=== PATIENT | male | born 1960 | race African-American/Black ===

== ENCOUNTER 2016-06-21 09:56 | Observation (INO) | payer OTHER ==
[2016-06-21] VITALS (9 sets, daily range): BP systolic 150–200; BP diastolic 80–95; PULSE 60–74; RESP 16–20; TEMP 97.2–98.8; O2SAT 95–99
[~2016-06-21] VITALS: Ht 170.2 cm; Wt 98.0 kg
[~2016-06-21 09:56] MED LIST: ASPI81 PO; ATOR20TA42 PO; CLOP75 PO; COLC.6 PO; LISI10 PO; PRIL20CA PO
[2016-06-21] MEDS ORDERED: SODIUM CHLORIDE 0.9% FLUSH 5 ML FLUSH IVF PRN ×2 (10:30→13:00)
--- NOTE | 2016-06-21 10:31 | PD ---
HPI Chief Complaint: Eye Problems/Injury Time Seen by Provider: 10:16 Travel History International Travel<30 days: No Contact w/Intl Traveler<30days: No Traveled to known affect area: No History of Present Illness HPI This 55-year-old male presents emergency department for evaluation of loss of vision transiently yesterday and again this morning. Patient is also not had his blood pressure medicine some time. He also endorses a mild headache as well as chest pain in the center of his chest that is nonradiating. Patient states the last time he had these symptoms I told him he had a mild stroke and be admitted to the hospital and he wants to make sure that this is not happening again. Patient currently states his vision is completely intact, he denies any focalized weakness but does endorse generalized weakness in both lower extremities. The onset of his symptoms were while he was sitting doing a task at work. PFSH Past Medical History Asthma: No Autoimmune Disease: No Blood Disorders: No Anxiety: No Depression: No Heart Rhythm Problems: No Cancer: No Cardiovascular Problems: Yes High Cholesterol: No Chemotherapy: No Chest Pain: Yes Congestive Heart Failure: No COPD: No Cerebrovascular Accident: Yes Diabetes: No Diminished Hearing: No Endocrine: No GERD: No Gout: Yes (L FOOT, R KNEE) Genitourinary: No Hiatal Hernia: No Hypertension: Yes Immune Disorder: No Musculoskeletal: Yes (gout) Neurologic: Yes (tingling of lips and fingers) Psychiatric: No Reproductive: No Respiratory: No Immunizations Current: Yes Radiation Therapy: No Sleep Apnea: No Thyroid Disease: No Ulcer: No Tetanus Vaccination: > 5 Years Past Surgical History AICD: No Arteriovenous Shunt: No Insulin Pump: No Joint Replacement: No Pacemaker: No Other Surgery: Yes (HERNIA SURGERY AT AGE 15) Social History Alcohol Use: No Tobacco Use: No Substance Use: No Allergies-Medications (Allergen,Severity, Reaction): Coded Allergies: No Known Allergies (Verified , 06/21/16) Reported Meds & Prescriptions Reported Meds & Active Scripts Active No Active Prescriptions or Reported Medications Review of Systems Except as stated in HPI: all other systems reviewed are Neg Physical Exam Narrative GENERAL: Well-developed well-nourished no apparent distress SKIN: Warm and dry. HEAD: Atraumatic. Normocephalic. EYES: Pupils equal and round. No scleral icterus. No injection or drainage. ENT: No nasal bleeding or discharge. Mucous membranes pink and moist. NECK: Trachea midline. No JVD. CARDIOVASCULAR: Regular rate and rhythm. No murmur appreciated. 2+ bilateral equal pulses in all 4 extremities. RESPIRATORY: No accessory muscle use. Clear to auscultation. Breath sounds equal bilaterally. GASTROINTESTINAL: Abdomen soft, non-tender, nondistended. Hepatic and splenic margins not palpable. MUSCULOSKELETAL: No obvious deformities. No clubbing. No cyanosis. No edema. NEUROLOGICAL: Awake and alert and oriented 3. Cranial nerves II through XII are grossly intact and nonfocal, 5 out of 5 strength in all 4 extremity is, ambulates narrow based with balanced gait. PSYCHIATRIC: Appropriate mood and affect; insight and judgment normal. Data Data Last Documented VS Vital Signs Date Time Temp Pulse Resp B/P Pulse Ox O2 Delivery O2 Flow Rate FiO2 06/21/16 11:09 99 06/21/16 09:59 97.9 74 16 200/95 Orders Electrocardiogram (06/21/16 10:22) Complete Blood Count With Diff (06/21/16 10:22) Comprehensive Metabolic Panel (06/21/16 10:22) Creatine Kinase (Cpk) (06/21/16 10:22) Prothrombin Time / Inr (Pt) (06/21/16 10:22) Act Partial Throm Time (Ptt) (06/21/16 10:22) Troponin I (06/21/16 10:22) Thyroid Stimulating Hormone (06/21/16 10:22) Urinalysis - C+S If Indicated (06/21/16 10:22) Ct Brain W/O Iv Contrast(Rout) (06/21/16 10:22) Blood Glucose (06/21/16 10:22) Ecg Monitoring (06/21/16 10:22) Iv Access Insert/Monitor (06/21/16 10:22) Oximetry (06/21/16 10:22) Sodium Chloride 0.9% Flush (Ns Flush) (06/21/16 10:30) Aspirin Chew (Aspirin Chew) (06/21/16 12:00) Admit Order (Ed Use Only) (06/21/16 ) Labs Laboratory Tests Test 06/21/16 10:48 White Blood Count 4.2 TH/MM3 Red Blood Count 4.14 MIL/MM3 Hemoglobin 12.8 GM/DL Hematocrit 37.6 % Mean Corpuscular Volume 90.8 FL Mean Corpuscular Hemoglobin 30.9 PG Mean Corpuscular Hemoglobin 34.0 % Concent Red Cell Distribution Width 14.7 % Platelet Count 191 TH/MM3 Mean Platelet Volume 8.6 FL Neutrophils (%) (Auto) 60.6 % Lymphocytes (%) (Auto) 24.7 % Monocytes (%) (Auto) 7.9 % Eosinophils (%) (Auto) 6.0 % Basophils (%) (Auto) 0.8 % Neutrophils # (Auto) 2.5 TH/MM3 Lymphocytes # (Auto) 1.0 TH/MM3 Monocytes # (Auto) 0.3 TH/MM3 Eosinophils # (Auto) 0.2 TH/MM3 Basophils # (Auto) 0.0 TH/MM3 CBC Comment DIFF FINAL Differential Comment Erythrocyte Sedimentation Rate 43 mm/hr Prothrombin Time 10.5 SEC Prothromb Time International 1.0 RATIO Ratio Activated Partial 28.6 SEC Thromboplast Time Sodium Level 142 MEQ/L Potassium Level 3.8 MEQ/L Chloride Level 108 MEQ/L Carbon Dioxide Level 26.1 MEQ/L Anion Gap 8 MEQ/L Blood Urea Nitrogen 13 MG/DL Creatinine 0.93 MG/DL Estimat Glomerular Filtration 102 ML/MIN Rate Random Glucose 106 MG/DL Calcium Level 8.7 MG/DL Total Bilirubin 0.3 MG/DL Aspartate Amino Transf 18 U/L (AST/SGOT) Alanine Aminotransferase 30 U/L (ALT/SGPT) Alkaline Phosphatase 48 U/L Total Creatine Kinase 236 U/L Troponin I LESS THAN 0.02 NG/ML Total Protein 7.1 GM/DL Albumin 3.5 GM/DL Thyroid Stimulating Hormone 1.760 uIU/ML [address] [place] [address] Medical Decision Making Medical Screen Exam Complete: Yes Emergency Medical Condition: Yes Interpretation(s) EKG shows sinus first degree heart block with a MI interval of 212, intervals otherwise within normal limits. No concerning ST T changes. [place] normal R- wave progression. This is an abnormal rhythm EKG. Differential Diagnosis TIA, CVA, carotid stenosis, atrial fibrillation, hemorrhagic stroke, electrolyte abnormality, hypertensive emergency. Narrative Course Patient was roomed in the emergency department, he appears well on arrival and neurologically completely intact. His vision has resolved since earlier event today. No indication for stroke alert. CT head is showing remote lacunar infarcts with no acute abnormality. Electrolytes within normal limits, EKG troponin CBC and CMP are reassuring. Did discuss with the patient that he does require further workup for this possible TIA and he is agreeable. His blood pressure without intervention has come down from 200 down to 170 systolic. There is no indication further blood pressure lowering acutely at this time. Patient was discussed with Dr. Yordan Junior for observation status and he is agreeable. This was agreed on by the patient is well. Diagnosis Primary Impression: Transient ischemic attack Qualified Code: G45.3 - Amaurosis fugax Additional Impressions: Amaurosis fugax, both eyes Hypertension Admitting Information Admitting Physician Requests: Observation Scripts No Active Prescriptions or Reported Meds Condition: Shabhaz Hopkins MD Jun 21, 2016 10:31
[2016-06-21 11:06] LABS: AUTOMATED NEUTROPHIL # 2.5 TH/MM3 (1.8-7.7); BASOPHIL % 0.8 % (0.0-2.0); EOSINOPHIL # 0.2 TH/MM3 (0-0.4); HEMATOCRIT 37.6 % (39.0-51.0); HEMO FLAGS DIFF FINAL; LYMPH % 24.7 % (9.0-44.0); MEAN CELL VOLUME 90.8 FL (80.0-100.0); MEAN CORPUSCULAR HEMOGLOBIN 30.9 PG (27.0-34.0); MONO % 7.9 % (0.0-8.0); NEUT % 60.6 % (16.0-70.0); PLATELET COUNT 191 TH/MM3 (150-450); RED BLOOD COUNT 4.14 MIL/MM3 (4.50-5.90); RED CELL DISTRIBUTION WIDTH 14.7 % (11.6-17.2); WHITE BLOOD COUNT 4.2 TH/MM3 (4.0-11.0)
--- NOTE | 2016-06-21 11:07 | RADRPT ---
EXAM DATE/TIME: 06/21/2016 10:55 [facility] COMPARISON: CT BRAIN W/O CONTRAST, May 19, 2015, 9:30. INDICATIONS : Cephalgia for 2 weeks. RADIATION DOSE: 40.09 CTDIvol (mGy) MEDICAL HISTORY : Cerebrovascular disease. Hypertension. SURGICAL HISTORY : None. ENCOUNTER: Initial ACUITY: 1 day PAIN SCALE: 3/10 LOCATION: cranial TECHNIQUE: Multiple contiguous axial images were obtained of the head. Using automated exposure control and adj ustment of the mA and/or kV according to patient size, radiation dose was kept as low as reasonably a chievable to obtain optimal diagnostic quality images. FINDINGS: CEREBRUM: The ventricles are normal for age. No evidence of midline shift, mass lesion, hemorrhage or acute in farction. No extra-axial fluid collections are seen. Old right basal ganglia lacunar infarct again n oted. POSTERIOR FOSSA: The cerebellum and brainstem are intact. The 4th ventricle is midline. The cerebellopontine angle i s unremarkable. EXTRACRANIAL: The visualized portion of the orbits is intact. SKULL: The calvaria is intact. No evidence of skull fracture. CONCLUSION: 1. No acute intracranial abnormality. 2. 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 Tom Hogan MD on June 21, 2016 at 11:05 Board Certified Radiologist. This report was verified electronically.
[2016-06-21 11:15] LABS: APTT (PATIENT) 28.6 SEC (24.3-30.1); PROTHROMBIN TIME - PATIENT 10.5 SEC (9.8-11.6)
[2016-06-21 11:29] LABS: ANION GAP 8 MEQ/L (5-15); AST (GOT) 18 U/L (15-37); BICARBONATE 26.1 MEQ/L (21.0-32.0); BLOOD UREA NITROGEN 13 MG/DL (7-18); CHLORIDE 108 MEQ/L (98-107); GLOMERULAR FILTRATION RATE 102 ML/MIN (>89); POTASSIUM 3.8 MEQ/L (3.5-5.1); SODIUM (NA) 142 MEQ/L (136-145)
[2016-06-21 11:39] LABS: ALKALINE PHOSPHATASE 48 U/L (45-117); ALT (GPT) 30 U/L (12-78); CREATINE KINASE 236 U/L (39-308); TOTAL BILIRUBIN ADULT 0.3 MG/DL (0.2-1.0)
[2016-06-21] MEDS ORDERED: ASPIRIN 81 MG CHEW TAB CHEW ONE (12:00)
[2016-06-21] MEDS ORDERED: DEXTROSE 50% IN WATER 50 ML VIAL(D50) IV PUSH PRN (13:00)
[2016-06-21] MEDS ORDERED: GLUCAGON 1 MG/ML VIAL OTHER PRN (13:00)
[2016-06-21] MEDS: ENOXAPARIN SODIUM 40 MG/0.4 ML SYRINGE SQ SCH (14:04)
--- NOTE | 2016-06-21 15:28 | EC ---
Study Study Date:06/21/2016 STUDY CONCLUSIONS SUMMARY - Left ventricle: The cavity size was normal. Wall thickness was normal. Systolic function was normal. The estimated ejection fraction was in the range of 55% to 60%. Wall motion was normal; there were no regional wall motion abnormalities. - Mitral valve: Mild regurgitation. - Tricuspid valve: Mild regurgitation. If LV function is below 40, please consider prescribing an ACEI or ARB or document rationale for non-use. PROCEDURE DATA STUDY STATUS: Elective. Procedure: Transthoracic echocardiography. Image quality was good. Scanning was performed from the parasternal, apical, and subcostal acoustic windows. Study completion: The patient tolerated the procedure well. Transthoracic echocardiography. M-mode, complete 2D, complete spectral Doppler, and color Doppler. Patient status: Inpatient. CARDIAC ANATOMY LEFT VENTRICLE: The cavity size was normal. Wall thickness was normal. Systolic function was normal. The estimated ejection fraction was in the range of 55% to 60%. Wall motion was normal; there were no regional wall motion abnormalities. AORTIC VALVE: Trileaflet; normal thickness leaflets. Doppler: Transvalvular velocity was within the normal range. There was no stenosis. No regurgitation. AORTA: Aortic root: The aortic root was normal in size. MITRAL VALVE: Structurally normal valve. Doppler: Transvalvular velocity was within the normal range. There was no evidence for stenosis. Mild regurgitation. LEFT ATRIUM: The atrium was normal in size. RIGHT VENTRICLE: The cavity size was normal. Wall thickness was normal. PULMONIC VALVE: Doppler: Transvalvular velocity was within the normal range. There was no evidence for stenosis. No regurgitation. TRICUSPID VALVE: Structurally normal valve. Doppler: Transvalvular velocity was within the normal range. Mild regurgitation. PULMONARY ARTERY: The main pulmonary artery was normal-sized. Systolic pressure was within the normal range. RIGHT ATRIUM: The atrium was normal in size. PERICARDIUM: There was no pericardial effusion. SYSTEMIC VEINS: Inferior vena cava: The vessel was normal in size. BASIC MEASUREMENTS ADULT Normal Left ventricle LV internal dimension, ED, chordal level, *39.1 mm 43-52 PLAX LV internal dimension, ES, chordal level, 29 mm 23-38 PLAX Fractional shortening, chordal level, PLAX *26 % >29 LV posterior wall thickness, ED 10.5 mm IVS/LVPW ratio, ED 1.27 <1.3 Ventricular septum Septal thickness, ED 13.3 mm Aortic valve Leaflet separation 21 mm 15-26 Right ventricle RV internal dimension, ED, PLAX 34.3 mm 19-38 BASIC MEASUREMENTS ADULT Normal Aortic valve Leaflet separation 21 mm 15-26 Aorta Root diameter, ED 31 mm 20-37 Left atrium Anterior-posterior dimension, ES 40 mm 19-40 LA/aortic root ratio 1.29 DOPPLER MEASUREMENTS ADULT Normal Main pulmonary artery Pressure, S 29 mm Hg =30 Tricuspid valve Regurgitant peak velocity 216 cm/s Peak RV-RA gradient, S 19 mm Hg Maximal regurgitant velocity 216 cm/s Systemic veins Estimated CVP 10 mm Hg Right ventricle RV pressure, S 29 mm Hg <30 LEGEND: Mean values are shown as u=mean value. Asterisk (*) pastor values outside specified normal range. Prepared and signed by Braden Gaona [id number]
--- NOTE | 2016-06-21 15:42 | RADRPT ---
EXAM DATE/TIME: 06/21/2016 14:10 [facility] COMPARISON: CTA CAROTID ARTERIES W 3D RECON, May 12, 2015, 19:47. US CAROTID ARTERIES, May 12, 2015, 11: 36. INDICATIONS : Transient ischemic attack. MEDICAL HISTORY : Hypertension. CVA. SURGICAL HISTORY : Hernia repair. ENCOUNTER: Subsequent ACUITY: 1 day PAIN SCORE: 0/10 LOCATION: Bilateral neck PEAK SYSTOLIC VELOCITIES (cm/sec): ICA/CCA RATIO: Right: 1.2 Left: 0.8 ICA: Right: 113 Left: 87 CCA: Right: 97 Left: 104 ECA: Right: 86 Left: 83 VERTEBRAL: Right: 46 antegrade Left: 67 antegrade Elevated flow velocities and ICA/CCA ratios have been found to correlate with increased degrees of vessel stenosis, calculated as percentage of diameter relative to a normal segment of distal ICA/CCA FINDINGS: RIGHT CAROTID: No significant stenosis is visualized. There is mild calcified plaque in the carotid bulb. LEFT CAROTID: No significant stenosis is visualized. There is intimal thickening and atherosclerotic plaque throug hout the common carotid artery and carotid bulb. The waveforms are within normal limits. VERTEBRAL ARTERIES: Antegrade flow is seen in both vertebral arteries. MISCELLANEOUS: None. CONCLUSION: 1. Mild atherosclerotic disease bilaterally, not significantly changed from the study from one year a go. No significant stenosis is identified within either internal carotid artery. 2. There is antegrade flow within both vertebral arteries. Tom Villarreal MD on June 21, 2016 at 15:38 Board Certified Radiologist. This report was verified electronically.
[2016-06-21] MEDS: INSULIN ASPART SUPPLEMENTAL SCALE SQ SCH ×2 (16:00→21:00)
--- NOTE | 2016-06-21 16:16 | OTSOAPIP ---
TIME SESSION COMPLETED: PM TREATMENT TIME: 0 MINS. CHART REVIEWED. ATTEMPTED TO SEE FOR OT EVALUATION, HOWEVER HAD PROCEDURE IN ROOM. WILL FOLLOW NEXT DAY. Therapist: YOLANDA RUIZ OT/[facility] on file
[2016-06-21 17:19] LABS: HEMOGLOBIN A1a 1.5 %; HEMOGLOBIN A1b 1.5 %; HEMOGLOBIN Ao 85.2 %; HEMOGLOBIN LA1C 1.9 %; HEMOGLOBIN P3 3.5 %
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
--- NOTE | 2016-06-21 18:45 | EKG ---
Date Performed: 06/21/2016 Time Performed: 10:41:28 PTAGE: 55 years EKG: Sinus rhythm WITH FIRST DEGREE AV BLOCK ABNORMAL ECG PREVIOUS TRACING : 05/19/2015 08.09 Compared to prior tracing no significant change DOCTOR: Thor Mccoy Interpretating Date/Time 06/21/2016 18:44:23
--- NOTE | 2016-06-21 19:14 | RADRPT ---
EXAM DATE/TIME: 06/21/2016 18:22 [facility] COMPARISON: CTA BRAIN W 3D RECON, May 12, 2015, 19:47. CTA CAROTID ARTERIES W 3D RECON, May 12, 2015, 19 :47. INDICATIONS : TIA. MEDICAL HISTORY : Hypertension. Diabetes mellitus type 2. Steroid injections. SURGICAL HISTORY : Umbilical hernia repair. ENCOUNTER: Initial ACUITY: 1 day PAIN SCORE: 3/10 LOCATION: Bilateral cranial Please note a normal MRA of the brain does not entirely exclude the possibility of a small aneurysm, nor the possibility of distal intracranial vessel disease. TECHNIQUE: 3D time of flight MRA was performed. Source images, multiplanar STS MIP, and 3D volume MIP reconstru ctions were reviewed. FINDINGS: Anterior circulation within normal limits. Diffusely diminutive vertebrobasilar system, similar to th e prior CTA. No evidence of an acute thrombosis. No aneurysm. Patient has a prominent caliber posteri or communicating artery on the left. CONCLUSION: 1. No acute abnormality seen of the intracranial arteries. 2. 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 Tom Hogan MD on June 21, 2016 at 19:09 Board Certified Radiologist. This report was verified electronically.
--- NOTE | 2016-06-21 19:16 | RADRPT ---
EXAM DATE/TIME: 06/21/2016 18:22 [facility] COMPARISON: CT BRAIN W/O CONTRAST, June 21, 2016, 10:55. INDICATIONS : TIA. CONTRAST: 20 cc Omniscan (gadodiamide) IV MEDICAL HISTORY : Hypertension. Diabetes mellitus type 2. SURGICAL HISTORY : Umbilical hernia repair. ENCOUNTER: Initial ACUITY: 1 day PAIN SCORE: 2/10 LOCATION: Bilateral cranial TECHNIQUE: Multiplanar, multisequence MRI of the brain was performed both prior to and following the administrat ion of paramagnetic contrast. FINDINGS: CEREBRUM: The ventricles are normal for age. No evidence of midline shift, mass lesion, hemorrhage or acute in farction. No extraaxial fluid collections are seen. The pituitary gland and suprasellar cistern are normal in configuration. A lacunar infarct again seen right basal ganglia. WHITE MATTER: No significant signal abnormalities are seen in the white matter. POSTERIOR FOSSA: The cerebellum and brainstem are intact. The 4th ventricle is midline. The cerebellopontine angle is unremarkable. The cerebellar tonsils are normal in position. DIFFUSION IMAGING: An estimated 5 x 15 mm area of faintly restricted diffusion is seen in the right occipital lobe. EXTRACRANIAL: The visualized portions of the orbits and paranasal sinuses are unremarkable. POST-CONTRAST: No abnormal areas of parenchymal or dural enhancement. No evidence of blood-brain barrier breakdown. CONCLUSION: 1. Very small acute or subacute infarct of the right occipital lobe. 2. 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 Tom Hogan MD on June 21, 2016 at 19:13 Board Certified Radiologist. This report was verified electronically.
--- NOTE | 2016-06-21 19:33 | MB ---
cc: ZAY NEGRETE MD DATE OF CONSULTATION 06/21/16 HISTORY This 55-year-old describing to me that his vision has been coming and going the past two weeks. He describes it as mostly the right eye. He admits some headaches, but this is today and relatively mild. This morning he also thought he was having some right lip twitching and when he had these in the past it might have been the time he had a stroke a couple of years ago. He is not taking any medications. He does not even take aspirin. He was evaluated as a stroke I believe this was last year. The neurologic exam is now completely normal. He was ambulatory for me, ocular movements and visual sidhu full. Pupils equal and reactive, disks not well visualized. No facial weakness. Speech and language normal. Reflexes were diminished, trace throughout. Plantar response is flexor. IMAGING STUDIES The CT brain shows nothing acute, old right basal ganglia infarct. The carotid ultrasound is unremarkable. LABORATORY DATA CBC and chemistry is essentially normal. Sed rate is 43. ASSESSMENT Recurrent visual loss in the past couple of weeks. The patient describes the right eye and this certainly may be the right amaurosis fugax or right hemianopsia. There was some twitching right lip today, although mild. He had a stroke last year and the CT is showing old stroke right basal ganglia. He was started on aspirin. I will check a lipid profile. Carotid ultrasound negative, but his symptoms are of concern. We will add an EEG for the possibility of seizures because of this facial twitching or lip twitching. We will check MRI brain, MRA neck and head. I will follow the neurological course. Thank you for asking us to assist in his care. MD ANIL Morgan/ /5:13 PM /7:22 PM
[2016-06-21] MEDS ORDERED: GADODIAMIDE PF 287 MG/ML 20 ML VIAL (for RAD MRI) IV PUSH ONE (19:47)
--- NOTE | 2016-06-21 20:12 | RADRPT ---
EXAM DATE/TIME: 06/21/2016 18:22 [place] COMPARISON: No previous studies available for comparison. INDICATIONS : TIA. CONTRAST: 20 cc Omniscan (gadodiamide) IV MEDICAL HISTORY : Hypertension. Diabetes mellitus type 2. Steroid injections. SURGICAL HISTORY : Umbilical hernia repair. ENCOUNTER: Initial ACUITY: 1 day PAIN SCORE: 3/10 LOCATION: Bilateral cranial Percent stenosis is calculated using the diameter of the stenotic region over the diameter of the nor mal distal internal carotid artery. TECHNIQUE: Bolus infused MRA of the extracranial circulation was performed using a neurovascular coil. Post pro cessing was performed including rotating subvolume maximum intensity projections of each carotid sunshine ry, rotating full volume maximum intensity projections of both carotid arteries, sagittal and coronal sliding thin slab reformations of each carotid artery, and left oblique sliding thin slab reformatio n through the aortic arch to include the origin of the arch branch vessels. FINDINGS: AORTIC ARCH: There is a three vessel origin of the great vessels from the aorta. No evidence of ostial narrowing. RIGHT CAROTID: The common carotid artery is intact. The carotid bulb has a normal configuration without ulceration or narrowing. The internal carotid artery lumen is smooth without stenosis. The external carotid ar janeth is intact. LEFT CAROTID: The common carotid artery is intact. The carotid bulb has a normal configuration without ulceration or narrowing. The internal carotid artery lumen is smooth without stenosis. The external carotid ar janeth is intact. VERTEBRALS: Chronically diminutive vertebrobasilar system especially distally again noted and not significantly c hanged from the prior CTA. I don't see acute vertebral artery thrombosis or dissection. CONCLUSION: Carotids within normal limits. Chronically diminutive vertebrobasilar system. Tom Hogan MD on June 21, 2016 at 20:09 Board Certified Radiologist. This report was verified electronically.
[2016-06-21] MEDS: SODIUM CHLORIDE 0.9% FLUSH 5 ML FLUSH IVF SCH (21:03)
[2016-06-22] VITALS (9 sets, daily range): BP systolic 138–172; BP diastolic 75–106; PULSE 62–74; RESP 18–21; TEMP 97.3–98.8; O2SAT 96–99
[2016-06-22] MEDS: INSULIN ASPART SUPPLEMENTAL SCALE SQ SCH ×3 (07:00→16:00)
[2016-06-22 08:17] LABS: AUTOMATED NEUTROPHIL # 2.8 TH/MM3 (1.8-7.7); BASOPHIL % 0.6 % (0.0-2.0); EOSINOPHIL # 0.2 TH/MM3 (0-0.4); EOSINOPHIL % 5.3 % (0.0-4.0); HEMATOCRIT 39.4 % (39.0-51.0); HEMO FLAGS DIFF FINAL; LYMPHOCYTE # 1.1 TH/MM3 (1.0-4.8); MEAN CELL VOLUME 90.8 FL (80.0-100.0); MEAN CORPUSCULAR HEMOGLOBIN 30.7 PG (27.0-34.0); MEAN CORPUSCULAR HGB CONC 33.8 % (32.0-36.0); MONO % 7.8 % (0.0-8.0); NEUT % 61.3 % (16.0-70.0); PLATELET COUNT 189 TH/MM3 (150-450); RED BLOOD COUNT 4.34 MIL/MM3 (4.50-5.90); RED CELL DISTRIBUTION WIDTH 14.6 % (11.6-17.2); WHITE BLOOD COUNT 4.6 TH/MM3 (4.0-11.0)
[2016-06-22 08:51] LABS: BICARBONATE 29.3 MEQ/L (21.0-32.0); HDL CHOLESTEROL 52.2 MG/DL (40.0-60.0); POTASSIUM 3.7 MEQ/L (3.5-5.1)
[2016-06-22] MEDS ORDERED: ASPIRIN 81 MG CHEW TAB PO SCH (09:00)
[2016-06-22] MEDS ORDERED: PANTOPRAZOLE SOD 40 MG DELAYED RELEASE TAB PO SCH (09:00)
[2016-06-22] MEDS ORDERED: ATORVASTATIN 20 MG TAB PO SCH (09:15)
[2016-06-22] MEDS ORDERED: ENALAPRILAT 1.25 MG/ML VIAL IV PRN (10:00)
--- NOTE | 2016-06-22 10:06 | HHI.PR ---
Subjective Remarks fu TIA r/o CVA, htn Patient denies any visual deficit, her vision, headache, dizziness Denies nausea vomiting. Denies dizziness, chest pain or shortness of breath. He noted to be slightly elevated with systolic blood pressure into the 150s and 160s. Objective Vitals Vital Signs Date Time Temp Pulse Resp B/P Pulse Ox O2 Delivery O2 Flow Rate FiO2 06/22/16 08:18 97.3 68 18 158/80 96 06/22/16 04:24 98.0 67 20 163/94 99 06/22/16 04:00 70 06/22/16 01:30 98.8 74 21 172/84 99 06/22/16 01:00 98.8 72 21 162/106 98 06/21/16 23:00 97.6 67 20 173/88 99 06/21/16 21:00 98.8 64 18 178/82 98 06/21/16 20:00 63 06/21/16 18:00 150/80 06/21/16 17:08 74 06/21/16 16:20 97.2 60 18 150/80 95 06/21/16 14:05 97.8 66 17 173/84 99 Room Air 06/21/16 11:09 99 Result Diagram: 06/22/16 0720 06/22/16 0720 Imaging Last Impressions Head CT 06/21/16 1022 Signed Impressions: Service Date/Time: Tuesday, June 21, 2016 10:55 - CONCLUSION: 1. No acute intracranial abnormality. 2. 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 Tom Hogan MD Neck Magnetic Resonance Angiography 06/21/16 0000 Signed Impressions: Service Date/Time: Tuesday, June 21, 2016 18:22 - CONCLUSION: Carotids within normal limits. Chronically diminutive vertebrobasilar system. Tom Hogan MD Head Magnetic Resonance Angiography 06/21/16 0000 Signed Impressions: Service Date/Time: Tuesday, June 21, 2016 18:22 - CONCLUSION: 1. No acute abnormality seen of the intracranial arteries. 2. 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 Tom Hogan MD Carotid Artery Ultrasound 06/21/16 0000 Signed Impressions: Service Date/Time: Tuesday, June 21, 2016 14:10 - CONCLUSION: 1. Mild atherosclerotic disease bilaterally, not significantly changed from the study from one year ago. No significant stenosis is identified within either internal carotid artery. 2. There is antegrade flow within both vertebral arteries. Tom Villarreal MD Brain MRI 06/21/16 0000 Signed Impressions: Service Date/Time: Tuesday, June 21, 2016 18:22 - CONCLUSION: 1. Very small acute or subacute infarct of the right occipital lobe. 2. 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 Tom Hogan MD Objective Remarks GENERAL: This is a well-nourished, well-developed patient, in no apparent distress. aaox3 SKIN: No rashes, ecchymoses or lesions. Cool and dry. HEAD: Atraumatic. Normocephalic. No temporal or scalp tenderness. EYES: Pupils equal round and reactive. Extraocular motions intact. No scleral icterus. No injection or drainage. ENT: Nose without bleeding, purulent drainage or septal hematoma. Throat without erythema, tonsillar hypertrophy or exudate. Uvula midline. Airway patent. NECK: Trachea midline. No JVD or lymphadenopathy. Supple, nontender, no meningeal signs. CARDIOVASCULAR: Regular rate and rhythm without murmurs, gallops, or rubs. RESPIRATORY: Clear to auscultation. Breath sounds equal bilaterally. No wheezes , rales, or rhonchi. GASTROINTESTINAL: Abdomen soft, non-tender, nondistended. No hepato-splenomegaly , or palpable masses. No guarding. MUSCULOSKELETAL: Extremities without clubbing, cyanosis, or edema. No joint tenderness, effusion, or edema noted. No calf tenderness. Negative Homans sign bilaterally. NEUROLOGICAL: Awake and alert. Cranial nerves II through XII intact. Motor and sensory grossly within normal limits. Five out of 5 muscle strength in all muscle groups. Normal speech. vision intact all sidhu. Procedures None. Medications and IVs Current Medications Medications (Trade) Dose Ordered Sig/Samson Route Start Time Stop Time Status Last Admin (NS Flush) 2 ml BID IVF 06/21/16 21:00 06/21/16 21:03 (NS Flush) 2 ml UNSCH PRN IVF 06/21/16 13:00 (Aspirin Chew) 162 mg DAILY PO 06/22/16 09:00 (D50w (Vial) Inj) 25 ml UNSCH PRN IV PUSH 06/21/16 13:00 (Glucagon Inj) 1 mg UNSCH PRN OTHER 3/10/17 13:00 (Lovenox Inj) 40 mg Q24H SQ 06/21/16 14:00 06/21/16 14:04 (Protonix) 40 mg DAILY PO 06/22/16 09:00 (Vasotec Inj) 1.25 mg Q4H PRN IV 06/22/16 10:00 (Lipitor) 10 mg HS PO 06/22/16 21:00 Urinary Catheter: No Vascular Central Line Catheter: No A/P Problem List: (1) Acute CVA (cerebrovascular accident) ICD Code: I63.9 Status: Acute Plan: Patient presented with suspected TIA and was placed under observation in the medical floor. Patient history of vertebrobasilar insufficiency on his CT brain in 2016 MRI of the brain showed a very small acute or subacute infarct of the right occipital lobe. 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 Carotid ultrasound sound shows mild atherosclerotic disease bilaterally without significant change from the study one year ago, no significant stenosis is identified in either internal carotid artery. There is anterograde flow within both vertebral arteries. Head MRA is negative for an acute abnormality. There is chronic vertebrobasilar disease similar to prior CTA. Neck CTA showed carotids within normal limits. Chronically diminutive vertebrobasilar system. Continue neuro checks Patient was started on aspirin which will be continued. Lipid profile shows an increased LDL of 127. I will start the patient on Lipitor. Echocardiogram showed a normal systolic function with an EF of 55-60% and no regional wall motion abnormalities. Neurology consult and recommendations appreciated. Patient has been elevated by PT, due to the home upon discharge. (2) HTN (hypertension) ICD Code: I10 Status: Acute Plan: Blood pressure seems to be elevated. However permission hypertension will be allowed given acute stroke. (3) Hyperlipidemia ICD Code: E78.5 Status: Acute Plan: LDL 127. In the view of an acute CVA, I will start the patient on a statin. (4) Gout ICD Code: M10.9 Status: Chronic Plan: History stable. Not on any medications. (5) Amaurosis fugax, both eyes ICD Code: G45.3 Status: Acute Plan: Likely due to acute CVA. There are no visual field deficits at this time. Assessment and Plan GI prophylaxis: PPI. DVT prophylaxis: SCDs, continue Lovenox continuously. Discharge Planning Pending EEG completion and neurology clearance. Possible discharge later today. Problem Qualifiers (1) Hyperlipidemia: Qualified Code: E78.00 - Pure hypercholesterolemia Edmund Miller MD Jun 22, 2016 10:05
[2016-06-22] MEDS: SODIUM CHLORIDE 0.9% FLUSH 5 ML FLUSH IVF SCH (10:30)
[2016-06-22] MEDS ORDERED: ATORVASTATIN 10 MG TAB PO SCH ×2 (11:00→21:00)
[2016-06-22] MEDS: ENOXAPARIN SODIUM 40 MG/0.4 ML SYRINGE SQ SCH (14:00)
[2016-06-22] MEDS ORDERED: AMLO5TAB2 PO (17:35)
[2016-06-22] MEDS ORDERED: ASPI325T PO (17:35)
[2016-06-22] MEDS ORDERED: LIPI10TA PO (17:35)
--- NOTE | 2016-06-22 17:40 | HHI.DCPOC ---
Discharge Care Plan Diagnosis: (1) Acute CVA (cerebrovascular accident) (2) HTN (hypertension) (3) Hyperlipidemia (4) Gout (5) Hypertension Goals to Promote Your Health * To prevent worsening of your condition and complications * To maintain your health at the optimal level Directions to Meet Your Goals Take your medications as prescribed Follow your dietary instruction Follow activity as directed Keep your appointments as scheduled Take your immunizations and boosters as scheduled If your symptoms worsen call your PCP, if no PCP go to Urgent Care Center or Emergency Room Smoking is Dangerous to Your Health. Avoid second hand smoke Call the 24-hour hour crisis hotline for domestic abuse at Edmund Miller MD Jun 22, 2016 17:40
[2016-06-22] MEDS ORDERED: amLODIPine BESYLATE 5 MG TAB PO ONE (17:45)
--- NOTE | 2016-06-22 18:12 | HHI.PR ---
Review/Management Daily Summary 06/22 doing well, no recurrence of symptoms ok to /c on asa, statin and medical care goal is ldl below 60 Subjective Subjective Comments No acute events reported No headache No chest pain No dyspnea Active Medications Current Medications Medications (Trade) Dose Ordered Sig/Samson Route Start Time Stop Time Status Last Admin (NS Flush) 2 ml BID IVF 06/21/16 21:00 06/22/16 10:30 (NS Flush) 2 ml UNSCH PRN IVF 06/21/16 13:00 (Aspirin Chew) 162 mg DAILY PO 06/22/16 09:00 06/22/16 10:30 (D50w (Vial) Inj) 25 ml UNSCH PRN IV PUSH 06/21/16 13:00 (Glucagon Inj) 1 mg UNSCH PRN OTHER 06/21/16 13:00 (Lovenox Inj) 40 mg Q24H SQ 06/21/16 14:00 06/21/16 14:04 (Protonix) 40 mg DAILY PO 06/22/16 09:00 06/22/16 10:30 (Vasotec Inj) 1.25 mg Q4H PRN IV 06/22/16 10:00 (Lipitor) 10 mg DAILY PO 06/22/16 11:00 06/22/16 12:39 Allergies Allergies Coded Allergies No Known Allergies (Verified06/21/16) Exam I&O / VS Vital Signs Date Time Temp Pulse Resp B/P Pulse Ox O2 Delivery O2 Flow Rate FiO2 06/22/16 16:05 97.9 62 18 165/88 98 06/22/16 16:04 65 06/22/16 13:35 65 06/22/16 12:11 98.2 64 18 138/75 97 06/22/16 08:18 97.3 68 18 158/80 96 06/22/16 04:24 98.0 67 20 163/94 99 06/22/16 04:00 70 06/22/16 01:30 98.8 74 21 172/84 99 06/22/16 01:00 98.8 72 21 162/106 98 06/21/16 23:00 97.6 67 20 173/88 99 06/21/16 21:00 98.8 64 18 178/82 98 06/21/16 20:00 63 Objective Radiology Results Last [address] 06/21/16 1022 Signed Impressions: Service Date/Time: Tuesday, June 21, 2016 10:55 - CONCLUSION: 1. No acute intracranial abnormality. 2. 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 Tom Hogan MD Neck Magnetic Resonance Angiography 06/21/16 0000 Signed Impressions: Service Date/Time: Tuesday, June 21, 2016 18:22 - CONCLUSION: Carotids within normal limits. Chronically diminutive vertebrobasilar system. Tom Hogan MD Head Magnetic Resonance Angiography 06/21/16 0000 Signed Impressions: Service Date/Time: Tuesday, June 21, 2016 18:22 - CONCLUSION: 1. No acute abnormality seen of the intracranial arteries. 2. 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 Tom Hogan MD Carotid Artery Ultrasound 06/21/16 0000 Signed Impressions: Service Date/Time: Tuesday, June 21, 2016 14:10 - CONCLUSION: 1. Mild atherosclerotic disease bilaterally, not significantly changed from the study from one year ago. No significant stenosis is identified within either internal carotid artery. 2. There is antegrade flow within both vertebral arteries. Tom Villarreal MD Brain MRI 06/21/16 0000 Signed Impressions: Service Date/Time: Tuesday, June 21, 2016 18:22 - CONCLUSION: 1. Very small acute or subacute infarct of the right occipital lobe. 2. 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 Tom Hogan MD Micro and Labs Laboratory Tests Test 06/22/16 07:20 White Blood Count 4.6 Red Blood Count 4.34 Hemoglobin 13.3 Hematocrit 39.4 Mean Corpuscular Volume 90.8 Mean Corpuscular Hemoglobin 30.7 Mean Corpuscular Hemoglobin 33.8 Concent Red Cell Distribution Width 14.6 Platelet Count 189 Mean Platelet Volume 8.4 Neutrophils (%) (Auto) 61.3 Lymphocytes (%) (Auto) 25.0 Monocytes (%) (Auto) 7.8 Eosinophils (%) (Auto) 5.3 Basophils (%) (Auto) 0.6 Neutrophils # (Auto) 2.8 Lymphocytes # (Auto) 1.1 Monocytes # (Auto) 0.4 Eosinophils # (Auto) 0.2 Basophils # (Auto) 0.0 CBC Comment DIFF FINAL Differential Comment Sodium Level 141 Potassium Level 3.7 Chloride Level 105 Carbon Dioxide Level 29.3 Anion Gap 7 Blood Urea Nitrogen 10 Creatinine 0.97 Estimat Glomerular Filtration 97 Rate Random Glucose 92 Calcium Level 8.6 Triglycerides Level 121 Cholesterol Level 203 LDL Cholesterol 127 HDL Cholesterol 52.2 Cholesterol/HDL Ratio 3.88 Documentation Reviewed: Reviewed old records Aj Chung MD Jun 22, 2016 18:12
--- NOTE | 2016-06-22 21:20 | MG ---
cc: ZAY NEGRETE MD Lab No: Date: 06/22/16 Age: 55 Sex: M Race: An EEG was obtained on this 55-year-old patient with history of visual changes, possible occipital infarct on the right. The study is showing some mid amplitude 8-10 per second activity in the central and posterior head regions. There are low amplitude beta rhythms frontally. The patient is awake and asleep. Sharp waves are seen but no paroxysmal discharge present. There are K complexes and some sleep spindles. The sharps are mostly central. Photic stimulation shows some mild driving response bilaterally. INTERPRETATION Probably normal EEG. There are some mild intermittent slowing and some sharp, mostly central but no distinct epileptiform features present. MD ANIL Morgan/ /8:56 PM /9:07 PM
== END 2016-06-22 19:51 | disposition home or self-care (01) ==
LOC: NEPB 09:56 → NEDA 12:53 → NEPHCDU 15:18
PROVIDERS: ADMIT Hospitalist; ATTEND Hospitalist
DX: I63.9 Cerebral infarction, unspecified (principal); G45.3 Amaurosis fugax; I10 Essential (primary) hypertension; M10.9 Gout, unspecified; E78.5 Hyperlipidemia, unspecified; Z86.73 Personal history of transient ischemic attack (TIA), and cerebral infarction without residual deficits
CPT/HCPCS: 70450; 70544; 70548; 70553; 80048; 80053; 80061; 82550; 82948; 83036; 84443; 84484; 85025; 85610; 85652; 85730; 92610; 93005; 93306; 93880; 95819; 97161; 97166; 99285; A9579; G0378; G8987; G8988; G8989; G8996; G8997; G8998; J1650